=== PATIENT | female | born 1935 | race African-American/Black ===

== ENCOUNTER 2019-01-02 09:21 | Emergency (ER) | payer MEDICARE, MEDICAID ==
[~2019-01-02] VITALS: Ht 177.8 cm; Wt 73.0 kg
[~2019-01-02 09:21] MED LIST: AMLO2.5T45 PO; ASPI-1393 PO; ATOR40TA70 PO; DABI150C PO; HYDR-519 PO; ISOS60TA4 PO; METO-539 PO; NITR0.4T49 SL
[2019-01-02 10:19] LABS: CLARITY URINE CLEAR (CLEAR); COLOR URINE YELLOW (YELLOW); KETONES URINE TRACE (NEGATIVE); LEUKOCYTE ESTERASE URINE TRACE (NEGATIVE); NITRITE URINE NEGATIVE (NEGATIVE); OCCULT BLOOD URINE NEGATIVE (NEGATIVE); PROTEIN URINE 2+ (NEGATIVE); SPECIFIC GRAVITY URINE 1.017 (1.005-1.030)
[2019-01-02 10:21] LABS: BASOPHILS % 0.7 % (0.0-2.0); EOSINOPHILS % 0.8 % (0.0-5.0); LYMPHOCYTES % 31.9 % (20.0-50.0); MEAN CORPUSCULAR VOLUME 92.4 fL (81.0-99.0); MEAN PLATELET VOLUME 9.8 fl (7.4-10.4); MONOCYTES % 10.2 % (2.0-8.0); NEUTROPHILS % 56.4 % (40.0-76.0); PLATELET 174 x1000/uL (130-400); RED BLOOD CELL COUNT 4.01 mill/uL (4.2-5.4); RED CELL DISTRIBUTION WIDTH 14.8 % (11.6-14.6)
[2019-01-02 10:26] LABS: CHLORIDE 103 mEq/L (98-107)
[2019-01-02 10:29] LABS: INR 1.3; PROTHROMBIN TIME 13.5 sec (9.6-11.0)
[2019-01-02 11:35] VITALS: BP 142/98
== END 2019-01-02 11:45 | disposition home or self-care (01) ==
LOC: ER 09:52
DX: K80.20 Calculus of gallbladder without cholecystitis without obstruction (principal); F05 Delirium due to known physiological condition; K57.30 Diverticulosis of large intestine without perforation or abscess without bleeding; K42.9 Umbilical hernia without obstruction or gangrene; I10 Essential (primary) hypertension; E11.9 Type 2 diabetes mellitus without complications; Z79.899 Other long term (current) drug therapy
CPT/HCPCS: 36415; 74176; 99284